=== PATIENT | female | born 1995 | race Caucasian/White ===

== ENCOUNTER 2019-12-20 11:31 | Emergency (ER) | payer OTHER ==
[2019-12-20] MEDS ORDERED: SODIUM CHLORIDE 0.9% 1,000 ML IV STA (12:00)
[2019-12-20 12:27] LABS: BASOPHILS % (AUTO) 0.3 %; EOSINOPHILS % (AUTO) 0.2 %; HGB - HEMOGLOBIN 13.7 g/dL (12.0-16.0); LYMPHOCYTES # (AUTO) 0.9 10^3/uL (1.5-3.5); LYMPHOCYTES % (AUTO) 14.5 %; MEAN CORPUSCULAR HEMOGLOBIN 30.9 pg (27.0-31.0); MEAN CORPUSCULAR HGB CONC 33.7 g/dL (32.0-36.0); MEAN CORPUSCULAR VOLUME 91.7 fL (81.0-99.0); MEAN PLATELET VOLUME 10.1 fL (7.9-10.8); MONOCYTES # (AUTO) 0.3 10^3/uL (0.0-1.0); MONOCYTES % (AUTO) 4.2 %; NEUTROPHILS % (AUTO) 80.5 %; PLT - PLATELET COUNT 199 10^3/uL (130-450); RED BLOOD COUNT 4.44 10^6/uL (4.20-5.40); RED CELL DISTRIBUTION WIDTH 11.9 % (12.0-15.0); WHITE BLOOD COUNT 6.2 x10^3/uL (4.8-10.8)
[2019-12-20 12:40] LABS: ALBUMIN 5.3 g/dL (3.2-5.5); ALBUMIN/GLOBULIN RATIO 1.4 (1.0-2.2); BILIRUBIN,TOTAL 1.2 mg/dL (0.2-1.0); CALCIUM 9.7 mg/dL (8.5-10.3); CREATININE 0.8 mg/dL (0.4-1.0); TOTAL PROTEIN 9.1 g/dL (6.7-8.2)
[2019-12-20 13:48] LABS: BILIRUBIN,URINE NEGATIVE (NEGATIVE); GLUCOSE, URINE (UA) NEGATIVE (NEGATIVE); KETONES,URINE (UA) >=80 mg/dL (NEGATIVE); LEUKOCYTE ESTERASE, URINE NEGATIVE (NEGATIVE); NITRITE,URINE NEGATIVE (NEGATIVE); OCCULT BLOOD,URINE NEGATIVE (NEGATIVE); PH,URINE 5.5 PH (5.0-7.5); PROTEIN,URINE NEGATIVE (NEGATIVE); UROBILINOGEN,URINE 0.2 (NORMAL) E.U./dL (NORMAL)
[2019-12-20 13:50] LABS: CLARITY,URINE CLEAR (CLEAR)
[2019-12-20 13:51] LABS: HCG UR QUAL POSITIVE
--- NOTE | 2019-12-20 14:08 | ED Physician Documentation ---
PD HPI NVD - Stated complaint Stated Complaint: N/V - Chief complaint Chief Complaint: Abd Pain - History obtained from History obtained from: Patient, Family - History of Present Illness Timing - onset: How many days ago (2) Timing - duration: Days (2) Timing - details: Gradual onset, Still present Associated symptoms: Near syncope / syncope Contributing factors: Travel Improved by: Laying still Worsened by: Moving Similar symptoms before: Diagnosis (morning sickness) Recently seen: Clinic - Additonal information Additional information: 24 y/o female 9 wks has developed vomiting and feels light headed. She has not tried her pyridoxine as yet as she was afraid she would vomit the medication. Review of Systems Constitutional: denies: Fever Eyes: denies: Decreased vision Ears: denies: Ear pain Nose: denies: Congestion Throat: denies: Sore throat Cardiac: denies: Chest pain / pressure Respiratory: denies: Dyspnea, Cough GI: reports: Nausea, Vomiting. denies: Abdominal Pain : denies: Dysuria, Frequency Skin: denies: Rash Musculoskeletal: denies: Neck pain PD PAST MEDICAL HISTORY - Past Medical History Past Medical History: No - Past Surgical History Past Surgical History: No - Allergies Allergies/Adverse Reactions: Allergies Allergy/AdvReac Type Severity Reaction Status Date / Time No Known Drug Allergies Allergy Verified 12/20/19 11:37 - Social History Does the pt smoke?: No Smoking Status: Never smoker Does the pt drink ETOH?: No Does the pt have substance abuse?: No PD ED PE NORMAL - Vitals Vital signs reviewed: Yes (hypertensive) - General General: Alert and oriented X 3, No acute distress, Well developed/nourished - HEENT HEENT: Atraumatic, PERRL, EOMI - Neck Neck: Supple, no meningeal sign, No bony TTP - Cardiac Cardiac: RRR, No murmur - Respiratory Respiratory: No respiratory distress, Clear bilaterally - Abdomen Abdomen: Normal bowel sounds, Soft, Non tender, Non distended, No organomegaly - Back Back: No CVA TTP, No spinal TTP - Derm Derm: Normal color, Warm and dry, No rash - Extremities Extremities: No deformity, No edema - Neuro Neuro: Alert and oriented X 3, vacation planner 2-12 intact, No motor deficit, No sensory deficit, Normal speech Eye Opening: Spontaneous Motor: Obeys Commands Verbal: Oriented GCS Score: 15 - Psych Psych: Normal mood, Normal affect Results - Vitals Vitals: Vital Signs - 24 hr 12/20/19 12/20/19 12/20/19 11:34 13:37 14:21 Temperature 36.3 C L 37.4 C Heart Rate 85 64 80 Respiratory 18 18 18 Rate Blood Pressure 133/64 H 99/60 99/59 L O2 Saturation 100 100 100 Oxygen O2 Source Room air - Labs Labs: Laboratory Tests 12/20/19 12/20/19 12/20/19 12:20 12:20 13:40 WBC 6.2 RBC 4.44 Hgb 13.7 Hct 40.7 MCV 91.7 MCH 30.9 MCHC 33.7 RDW 11.9 L Plt Count 199 MPV 10.1 Neut # (Auto) 5.0 Lymph # (Auto) 0.9 L [place] # (Auto) 0.3 Eos # (Auto) 0.0 Baso # (Auto) 0.0 Absolute Nucleated RBC 0.00 Nucleated RBC % 0.0 Sodium 134 L Potassium 3.4 L Chloride 99 L Carbon Dioxide 19 L Anion Gap 16.0 H BUN 20 Creatinine 0.8 Estimated GFR (MDRD) 90 Glucose 82 Calcium 9.7 Total Bilirubin 1.2 H AST 19 ALT 14 Alkaline Phosphatase 36 L Total Protein 9.1 H Albumin 5.3 Globulin 3.8 Albumin/Globulin Ratio 1.4 Lipase 70 H Urine Color YELLOW Urine Clarity CLEAR Urine pH 5.5 Ur Specific [place] >=1.030 H Urine Protein NEGATIVE Urine Glucose (UA) NEGATIVE Urine Ketones >=80 H Urine Occult Blood NEGATIVE Urine Nitrite NEGATIVE Urine Bilirubin NEGATIVE Urine Urobilinogen 0.2 (NORMAL) Ur Leukocyte Esterase NEGATIVE Ur Microscopic Review NOT INDICATED Urine Culture Comments NOT INDICATED Urine HCG, Qual POSITIVE Procedures - Bedside sono Bedside sono by EMP: With use of bedside ultrasound the pelvis is imaged and there is a viable appearing fetus in a gestational sac measuring 8 weeks 4 days. The cardiac activity is clearly visible I was not able to get the Doppler probe to count the rate. - IVC sono (time) 1145 Bedside IVC sono: IVC measures (cm) (1.12), Dehydration (est 1+ liter deficit) PD MEDICAL DECISION MAKING - ED course Complexity details: reviewed results, re-evaluated patient, considered differential, d/w patient, d/w family ED course: 24-year-old female with excessive vomiting is dehydrated she is 9 weeks . She appears to have a viable fetus she does not have evidence of a urinary tract infection and she is administered saline. She is administered her own vitamin B6. She feels much improved after saline infusion. Departure - Departure Disposition: 01 Home, Self Care Clinical Impression: Morning sickness, Dehydration Condition: Stable Instructions: ED Dehydration, ED Preg Morning Sickness Follow-Up: PETE Mendiola [Provider Group] Discharge Date/Time: 12/20/19 14:21
[2019-12-20 14:24] VITALS: BP 99/59
== END 2019-12-20 14:21 | disposition home or self-care (01) ==
LOC: ED 11:31
DX: O21.1 Hyperemesis gravidarum with metabolic disturbance (principal); Z3A.09 9 weeks gestation of pregnancy
CPT/HCPCS: 80053; 81001; 81003; 81025; 83690; 85025; 87086; 96360; 99282

== ENCOUNTER 2020-06-30 08:00 | Outpatient (CLI) | payer OTHER | END 2020-06-30 23:59 | disposition home or self-care (01) | LOC: LAB.R 08:00 | PROVIDERS: ATTEND Obstetrics & Gynecology | DX: Z36.85 Encounter for antenatal screening for Streptococcus B (principal) | CPT/HCPCS: 87797 ==

== ENCOUNTER 2020-07-07 10:37 | Outpatient (CLI) | payer OTHER ==
[2020-07-07 10:53] VITALS: BP 110/76
--- NOTE | 2020-07-07 16:48 | Ultrasound Report ---
PROCEDURE: OB F/U or Repeat INDICATIONS: small for gestational age OUTSIDE/PRIOR DATING DATA: Last menstrual period (LMP): 10/19/2019. LMP-based estimated date of delivery (MAURO): 07/25/2020. First dating scan (date and location): 11/29/2019 at [facility]. Estimated date of delivery (MAURO) from first dating scan: 07/25/2020. TECHNIQUE: Real-time scanning was performed of the fetus, with image documentation and biometric measurements. COMPARISON: None available. Report from prior ultrasound dated 03/01/2020. FINDINGS: General: A single living intrauterine gestation is present. Presentation: Vertex Placenta: Placental position is fundal, without previa. Amniotic fluid index: 10 cm, 18th percentile for gestational age. Largest pocket measures 4 cm. heart rate: 139 beats per minute. Maternal cervical canal: The cervix appears closed. biometrics: Biparietal diameter: 9.1 cm, 37 weeks 1 day Head circumference: 32.2 cm, 36 weeks 3 days Abdominal circumference: 32.8 cm, 36 weeks 5 days Femur length: 7.1 cm, 36 weeks 2 days Estimated gestational age from initial scan: 37 weeks 3 days Composite gestational age from present scan: 36 weeks 5 days Estimated weight and percentile: 2991 g corresponding to the 37th percentile Measurement variability in biometric dating: +/- 10 days from 12-20 weeks gestation, +/- 2 weeks from 20-30 weeks gestation, +/- 3 weeks at 30 weeks gestation or more. IMPRESSION: 1. Single living intrauterine demonstrated in vertex position. 2. Estimated weight at the 37th percentile. Reviewed by: Shlomo Whiteside MD on 07/07/2020 4:47 PM PST Approved by: Shlomo Whiteside MD on 07/07/2020 4:47 PM PST Station ID: [id number]
--- NOTE | 2020-07-10 15:24 | PROCEDURE REPORT ---
- HPI Diagnosis/Indication for NST: Decreased movement Current EDU 07/25/20 Gestation 37 Weeks and 3 Days 2 Para 0 Vital Signs Temperature 36.3 C L 07/07/20 10:49 Heart Rate 97 07/07/20 10:49 Respiratory Rate 16 07/07/20 10:49 Blood Pressure 110/76 07/07/20 10:49 O2 Saturation 100 07/07/20 10:49 Temperature 36.3 C L 07/07/20 10:49 Heart Rate 97 07/07/20 10:49 Respiratory Rate 16 07/07/20 10:49 Blood Pressure 110/76 07/07/20 10:49 O2 Saturation 100 07/07/20 10:49 - NST Procedure NST Procedure Start Date 07/07/20 Start Time 10:45 Stop Time 11:33 Vibroacoustic Stimulation Used No Patient States Movement Yes: decreased - Results and Plan Findings/Impression: DOS, REACTIVE NST Plan: REPORT DECREASED FM OR SROM
== END 2020-07-07 15:00 | disposition home or self-care (01) ==
LOC: WFO 10:37 → FBP 10:39 → WFO 15:00
PROVIDERS: ATTEND Obstetrics & Gynecology
DX: O36.8130 Decreased fetal movements, third trimester, not applicable or unspecified (principal); O36.5930 Maternal care for other known or suspected poor fetal growth, third trimester, not applicable or unspecified; Z3A.37 37 weeks gestation of pregnancy
CPT/HCPCS: 59025; 81599; 82951; 82952; 83036

== ENCOUNTER 2020-07-21 20:03 | Inpatient (IN) | payer OTHER ==
[2020-07-21] MEDS ORDERED: CARBOPROST TROMETHAMINE 250 MCG/ML AMP IM PRN (20:33)
[2020-07-21] MEDS ORDERED: LIDOCAINE-MPF 1% 30 ML VIAL ID PRN (20:33)
[2020-07-21] MEDS ORDERED: SODIUM CHLORIDE FLUSH 0.9% 10 ML SYRINGE IVP PRN (20:33)
[2020-07-21] MEDS ORDERED: miSOPROStoL 200 MCG TABLET BC PRN (20:33)
[2020-07-21] MEDS ORDERED: TRANEXAMIC ACID IN NACL 1,000 MG/100 ML BAG IV PRN (20:33)
[2020-07-21] MEDS ORDERED: OXYTOCIN/SODIUM CHLORIDE 500 ML IV PRN (20:33)
[2020-07-21] MEDS ORDERED: METHYLERGONOVINE 0.2 MG/ML VIAL IM PRN (20:33)
[2020-07-21] MEDS ORDERED: OXYTOCIN 10 UNIT/ML VIAL IM PRN (20:33)
[2020-07-21] MEDS ORDERED: LACTATED RINGERS 500 ML IV SCH (20:36)
[2020-07-21] MEDS: SODIUM CHLORIDE FLUSH 0.9% 10 ML SYRINGE IVP SCH ×2 (21:18→23:06)
[2020-07-21 21:24] LABS: BASOPHILS % (AUTO) 0.2 %; EOSINOPHILS % (AUTO) 0.1 %; HGB - HEMOGLOBIN 8.1 g/dL (12.0-16.0); LYMPHOCYTES # (AUTO) 2.9 10^3/uL (1.5-3.5); LYMPHOCYTES % (AUTO) 23.4 %; MEAN CORPUSCULAR HEMOGLOBIN 21.2 pg (27.0-31.0); MEAN PLATELET VOLUME 10.7 fL (7.9-10.8); MONOCYTES # (AUTO) 0.8 10^3/uL (0.0-1.0); MONOCYTES % (AUTO) 6.2 %; NEUTROPHILS # (AUTO) 8.6 10^3/uL (1.5-6.6); NEUTROPHILS % (AUTO) 69.5 %; PLT - PLATELET COUNT 265 10^3/uL (130-450); RED BLOOD COUNT 3.82 10^6/uL (4.20-5.40); RED CELL DISTRIBUTION WIDTH 18.5 % (12.0-15.0); WHITE BLOOD COUNT 12.3 x10^3/uL (4.8-10.8)
[2020-07-21] MEDS ORDERED: fentaNYL 100 MCG/2 ML VIAL IVP PRN (22:58)
[2020-07-21] MEDS ORDERED: ONDANSETRON 4 MG/2 ML VIAL IVP PRN (23:33)
[2020-07-21] MEDS ORDERED: ROPIVACAINE 0.2% 200 MG/100 ML BAG EP ONE (23:50)
[2020-07-22] MEDS ORDERED: diphenhydrAMINE INJ 50 MG/ML VIAL IVP PRN (00:12)
[2020-07-22] MEDS ORDERED: ROPIVACAINE 0.2% 200 MG/100 ML BAG EP PRN (00:12)
[2020-07-22] MEDS ORDERED: NALOXONE 0.4 MG/ML VIAL IVP PRN (00:12)
[2020-07-22] MEDS ORDERED: NALBUPHINE 10 MG/ML AMP IVP PRN (00:12)
[2020-07-22] MEDS ORDERED: ONDANSETRON 4 MG/2 ML VIAL IVP PRN (00:12)
[2020-07-22] MEDS ORDERED: ePHEDrine 50 MG/ML VIAL IVP PRN (00:12)
[2020-07-22] MEDS ORDERED: METOCLOPRAMIDE 10 MG/2 ML VIAL IVP PRN (00:12)
--- NOTE | 2020-07-22 00:15 | ANESTHESIA ---
Pre-Anesthesia VS, & Labs - Diagnosis active labor - Procedure labor epidural Vital Signs: Temp Pulse Resp BP Pulse Ox 36.8 C 90 16 138/85 H 100 07/21/20 20:46 07/21/20 20:16 07/21/20 20:16 07/21/20 20:16 07/21/20 20:16 Height: 5 ft 3 in Weight (kg): 63.049 kg Body Mass Index: 24.6 BMI Classification: Healthy weight - NPO >8 hours - Is Patient ?: Yes - Lab Results Current Lab Results: Laboratory Tests 07/21/20 21:17: WBC 12.3 H, RBC 3.82 L, Hgb 8.1 L, Hct 27.9 L, MCV 73.0 L, MCH 21.2 L, MCHC 29.0 L, RDW 18.5 H, Plt Count 265, MPV 10.7, Neut # (Auto) 8.6 H, Lymph # (Auto) 2.9, [place] # (Auto) 0.8, Eos # (Auto) 0.0, Baso # (Auto) 0.0, Absolute Nucleated RBC 0.05, Nucleated RBC % 0.4 07/21/20 21:17: Blood Type A POSITIVE, Antibody Screen NEGATIVE Fish Bones: 07/21/20 21:17 Home Medications and Allergies Active Medications Carboprost Tromethamine (Carboprost Tromethamine 250 Mcg/Ml Amp) 250 mcg IM Q15M PRN PRN Reason: Step 4: Hemorrhage protocol Stop: 07/26/20 20:33 Diphenhydramine HCl (Diphenhydramine Inj 50 Mg/Ml Vial) 12.5 - 25 mg IVP Q6HR PRN PRN Reason: ITCHING Ephedrine Sulfate (Ephedrine 50 Mg/Ml Vial) 5 mg IVP Q5M PRN PRN Reason: For SBP<100;give until SBP>100 Fentanyl (Fentanyl 100 Mcg/2 Ml Vial) 100 mcg IVP Q1HR PRN PRN Reason: PAIN Last Admin: 07/21/20 23:06 Dose: 100 mcg Documented by: Lactated Ringer's (Lr) 500 mls @ 999 mls/hr IV .Q31M CECELIA Last Admin: 07/21/20 21:17 Dose: 999 mls/hr Documented by: Oxytocin/Sodium Chloride (Pitocin/Sodium Chloride) 500 mls @ 999 mls/hr IV PRN PRN; Protocol PRN Reason: POST- HEMORR PREVENTION Stop: 07/26/20 20:33 Tranexamic Acid (Tranexamic 1,000 Mg/100ml-Nacl) 1,000 mg in 100 mls @ 600 mls/hr IV .ONCE PRN PRN Reason: EBL >1200mL and within 3hr Stop: 07/26/20 20:33 Lidocaine HCl (Lidocaine-Mpf 1% 30 Ml Vial) 30 ml ID .ONCE PRN PRN Reason: PERINEAL REPAIR Stop: 07/26/20 20:33 Methylergonovine Maleate (Methylergonovine 0.2 Mg/Ml Vial) 0.2 mg IM .ONCE PRN PRN Reason: Step 2: Hemorrhage protocol Stop: 07/26/20 20:33 Metoclopramide HCl (Metoclopramide 10 Mg/2 Ml Vial) 10 mg IVP Q6HR PRN PRN Reason: Nausea / Vomiting Misoprostol (Misoprostol 200 Mcg Tablet) 800 mcg BC .ONCE PRN PRN Reason: Step 3: Hemorrhage protocol Stop: 07/26/20 20:33 Naloxone HCl (Naloxone 0.4 Mg/Ml Vial) 0.1 mg IVP Q2M PRN PRN Reason: RR<8 Ondansetron HCl (Ondansetron 4 Mg/2 Ml Vial) 4 mg IVP Q4HR PRN PRN Reason: Nausea / Vomiting Last Admin: 07/21/20 23:35 Dose: 4 mg Documented by: Ondansetron HCl (Ondansetron 4 Mg/2 Ml Vial) 4 mg IVP Q6HR PRN PRN Reason: Nausea / Vomiting Oxytocin (Oxytocin 10 Unit/Ml Vial) 10 unit IM .ONCE PRN PRN Reason: Step one: If no IV access Stop: 07/26/20 20:33 Sodium Chloride (Sodium Chloride Flush 0.9% 10 Ml Syringe) 10 ml IVP PRN PRN PRN Reason: NEEDED PER PROVIDER ORDERS Last Admin: 07/21/20 21:18 Dose: 10 ml Documented by: Sodium Chloride (Sodium Chloride Flush 0.9% 10 Ml Syringe) 10 ml IVP 0100,0900,1700 CECELIA Last Admin: 07/21/20 23:06 Dose: 10 ml Documented by: Allergies/Adverse Reactions: Allergies Allergy/AdvReac Type Severity Reaction Status Date / Time No Known Drug Allergies Allergy Verified 12/20/19 11:37 Anes History & Medical History - Anesthetic History Anesthesia Complications: reports: No previous complications - Medical History Smoking Status: Never smoker Exam General: Alert Dental: WNL Mallampati classification: II Respiratory: Lungs clear Cardiovascular: Regular rate Plan Anesthesia Type: Epidural Consent for Procedure(s) Verified and Reviewed: Yes Code Status: Attempt Resuscitation ASA classification: 2-Mild systemic disease Is this case an emergency?: No
--- NOTE | 2020-07-22 01:14 | HISTORY & PHYSICAL EXAMINATION ---
Admit History - Smoking Status: Never smoker - Other Maternal History Other Maternal History: CC: labor HPI: contractions have increased today. No VB, no LOF. ROS: no cough or fever PMH: anemia PSH: wisdom teeth Allergies: NKDA Meds: PNV SH: no t/e/d OB: Dating: LMP c/w 5w US Labs: A+, RI, . Neg STI, pap unsatisfactory, 1h 141, 3h normal, QS normal, GBS neg Vax: s/p Tdap and flu vax Genetic: normal QS Anatomy: normal, post placenta, normal fluid, 84%ile O: AVSS Alert, grimacing, moaning with contractions SVE 4cm on admit Category 1 NST A/P: 25yo P0 at 39w4d with spontaneous labor at term. --Labor: spontaneous with good SVE change. 4cm on admit and ant lip now. Anticipate . --Anemia Hct 27: type and cross done for 2U, hemorrhage meds in room --Fetus: reassuring status. Category 1, vertex, normal anatomy, normal QS, EFW 37%ile on 07/07 --PP: needs re-pap. Rh+, RI, , s/p Tdap and flu Meds/Allgy - Allergies Allergies/Adverse Reactions: Allergies Allergy/AdvReac Type Severity Reaction Status Date / Time No Known Drug Allergies Allergy Verified 12/20/19 11:37 Physical - Abdominal Exam Vital Signs: Temp Pulse Resp BP Pulse Ox 98.2 F 90 16 138/85 H 100 07/21/20 20:46 07/21/20 20:16 07/21/20 20:16 07/21/20 20:16 07/21/20 20:16
[2020-07-22] MEDS ORDERED: ONDANSETRON ODT 4 MG TABLET TL PRN (03:24)
[2020-07-22] MEDS ORDERED: HYDROCORTISONE 1% CREAM 28 GM TUBE PR PRN (03:24)
[2020-07-22] MEDS ORDERED: WITCH HAZEL/GLYCERIN 1 PAD TOP PRN (03:24)
--- NOTE | 2020-07-22 03:28 | DELIVERY NOTE ---
Delivery Note - Labor Labor: positive: Spontaneous - Delivery Method Delivery Method: positive: Spontaneous vaginal delivery - Presentation Presentation: positive: Vertex - Nuchal Cord Nuchal Cord: positive: Present, Reduced (loose) - Amniotic Fluid Description Amniotic Fluid Description: positive: Clear - Episiotomy Type Episiotomy Type: positive: None - Laceration Laceration: positive: 2nd degree - Suture Suture Type: positive: Vicryl Suture Size: positive: 2-0 (Normal anatomy restored) - Delivery Outcome Delivery Outcome: positive: Livebirth - : positive: Placed in direct skin contact with mother, Bulb syringe, Stimulated, Warmed, Bryant used sex: positive: Female : Apgars 9/9 - Cord Cord: positive: 3 vessels - Placenta Placenta: positive: Intact, Spontaneous - Estimated Blood Loss Estimated Blood Loss (in cc): 200 - Post Delivery Events Post Delivery Events: positive: No post delivery events - Delivery Comments (Free Text/Narrative) Delivery Comments (Free Text/Narrative): Uncomplicated spontaneous vaginal delivery at term. Anticipate routine care. Hct 27, doing repeat and iron studies, anticipate doing IV iron transfusion. EBL 200cc.
[2020-07-22] MEDS: IBUPROFEN 600 MG TABLET PO SCH ×5 (03:38→23:21)
[2020-07-22] MEDS: ACETAMINOPHEN 500 MG TABLET PO SCH ×3 (03:38→23:45)
[2020-07-22] MEDS: DOCUSATE SODIUM 100 MG CAPSULE PO SCH ×2 (09:58→21:06)
[2020-07-22 11:01] LABS: BASOPHILS % (AUTO) 0.1 %; LYMPHOCYTES # (AUTO) 1.6 10^3/uL (1.5-3.5); LYMPHOCYTES % (AUTO) 10.7 %; MEAN CORPUSCULAR HEMOGLOBIN 21.5 pg (27.0-31.0); MEAN CORPUSCULAR HGB CONC 28.9 g/dL (32.0-36.0); MEAN CORPUSCULAR VOLUME 74.5 fL (81.0-99.0); MEAN PLATELET VOLUME 10.5 fL (7.9-10.8); MONOCYTES # (AUTO) 0.7 10^3/uL (0.0-1.0); MONOCYTES % (AUTO) 4.6 %; NEUTROPHILS # (AUTO) 12.3 10^3/uL (1.5-6.6); NEUTROPHILS % (AUTO) 84.1 %; PLT - PLATELET COUNT 215 10^3/uL (130-450); RED BLOOD COUNT 3.25 10^6/uL (4.20-5.40); RED CELL DISTRIBUTION WIDTH 18.4 % (12.0-15.0); WHITE BLOOD COUNT 14.6 x10^3/uL (4.8-10.8)
[2020-07-22 11:34] LABS: % IRON SATURATION 2 % (20-50); IRON 11 ug/dL (28-170); PLATELET ESTIMATE, MANUAL NORMAL (130-450,000) (NORMAL); PLATELET MORPHOLOGY NORMAL APPEARANCE (NORMAL); TOTAL IRON BINDING CAPACITY 567 ug/dL (250-450); TRANSFERRIN 405 mg/dL (192-382)
[2020-07-22] MEDS ORDERED: FERRIC GLUCONATE 125 MG in SODIUM CHLORIDE 0.9% 100ML 100 ML IV ONE (12:00)
[2020-07-22] MEDS: SODIUM CHLORIDE FLUSH 0.9% 10 ML SYRINGE IVP SCH ×2 (13:00→23:45)
--- NOTE | 2020-07-22 14:06 | PROVIDER PROGRESS NOTE ---
Subjective - Subjective Subjective: Feeling well, no probs with pain, eat, ambulate, urinate, bleeding, STEVENS, SOB, CP, dizziness. Bottle feeding and breasts are OK. O: AVSS Alert, cuddling baby, smiling, NAD Abd soft, nt/nd Fundus firm, NT, 2cm below umbilicus Hb 7, Fe low A/P: 25yo P1 PPD # 0.5 s/p at term complicated by chronic iron deficiency anemia + new acute blood loss anemia. Iv Fe given and will plan 3 more doses outpatient. Tolerating well. Otherwise routine care. Objective - Vital Signs/Intake & Output Vital Signs: Vital Signs x48h Temp Pulse Resp BP Pulse Ox 07/22/20 09:50 98.2 F 73 18 129/79 98 Intake & Output: Intake & Output 07/19/20 07/20/20 07/21/20 07/22/20 23:59 23:59 23:59 23:59 Intake Total 1000 Output Total 75 Balance 925 - Lab Results Fish Bones: 07/22/20 10:57 Other Labs: Lab Results x24hrs 07/22/20 07/22/20 07/21/20 Range/Units 10:57 10:57 21:17 WBC 14.6 H 12.3 H (4.8-10.8) x10^3/uL RBC 3.25 L 3.82 L (4.20-5.40) 10^6/uL Hgb 7.0 L* 8.1 L (12.0-16.0) g/dL Hct 24.2 L 27.9 L (37.0-47.0) % MCV 74.5 L 73.0 L (81.0-99.0) fL MCH 21.5 L 21.2 L (27.0-31.0) pg MCHC 28.9 L 29.0 L (32.0-36.0) g/dL RDW 18.4 H 18.5 H (12.0-15.0) % Plt Count 215 265 (130-450) 10^3/uL MPV 10.5 10.7 (7.9-10.8) fL Neut # (Auto) 12.3 H 8.6 H (1.5-6.6) 10^3/uL Lymph # (Auto) 1.6 2.9 (1.5-3.5) 10^3/uL [place] # (Auto) 0.7 0.8 (0.0-1.0) 10^3/uL Eos # (Auto) 0.0 0.0 (0.0-0.7) 10^3/uL Baso # (Auto) 0.0 0.0 (0.0-0.1) 10^3/uL Absolute Nucleated RBC 0.00 0.05 x10^3/uL Nucleated RBC % 0.0 0.4 /100WBC WBC Morphology NORMAL APPEARANCE (NORMAL) Platelet Estimate NORMAL (130-450,000) (NORMAL) Platelet Morphology NORMAL APPEARANCE (NORMAL) RBC Morph Micro Appear 1+ HYPOCHROMASIA (NORMAL) Iron 11 L (28-170) ug/dL TIBC 567 H (250-450) ug/dL % Saturation 2 L (20-50) % Transferrin 405 H (192-382) mg/dL Blood Type Blood Type Recheck Antibody Screen Crossmatch IS Only 07/21/20 07/21/20 Range/Units 21:17 01:10 WBC (4.8-10.8) x10^3/uL RBC (4.20-5.40) 10^6/uL Hgb (12.0-16.0) g/dL Hct (37.0-47.0) % MCV (81.0-99.0) fL MCH (27.0-31.0) pg MCHC (32.0-36.0) g/dL RDW (12.0-15.0) % Plt Count (130-450) 10^3/uL MPV (7.9-10.8) fL Neut # (Auto) (1.5-6.6) 10^3/uL Lymph # (Auto) (1.5-3.5) 10^3/uL [place] # (Auto) (0.0-1.0) 10^3/uL Eos # (Auto) (0.0-0.7) 10^3/uL Baso # (Auto) (0.0-0.1) 10^3/uL Absolute Nucleated RBC x10^3/uL Nucleated RBC % /100WBC WBC Morphology (NORMAL) Platelet Estimate (NORMAL) Platelet Morphology (NORMAL) RBC Morph Micro Appear (NORMAL) Iron (28-170) ug/dL TIBC (250-450) ug/dL % Saturation (20-50) % Transferrin (192-382) mg/dL Blood Type A POSITIVE Blood Type Recheck A POSITIVE Antibody Screen NEGATIVE Crossmatch IS Only See Detail
[2020-07-23] MEDS: IBUPROFEN 600 MG TABLET PO SCH ×2 (05:15→12:37)
[2020-07-23] MEDS: DOCUSATE SODIUM 100 MG CAPSULE PO SCH (08:06)
[2020-07-23 08:28] VITALS: BP 121/88
--- NOTE | 2020-07-23 09:28 | Discharge Plan ---
Discharge Plan Problem Reviewed?: Yes Disposition: Home, Self Care Condition: Good Prescriptions: Docusate Sodium 100Mg Capsule [Colace 100Mg Capsule] 100 mg PO BID PRN #30 cap PRN Reason: to soften stool Iron Polysaccharide Complex [Hematex] 1 tab PO DAILY #90 Ibuprofen [Motrin] 600 mg PO Q6H PRN #30 tab PRN Reason: Pain 168/Iron/Folic/Omega3 [One-A-Day -1 Softgel] 1 each PO DAILY #90 cap Diet: Regular Shower Restrictions: No Driving Restrictions: No No Smoking: If you smoke, Please STOP! Call for help. Follow-up with: Jonathan Silva MD [Provider Admit Priv/Credential] - (3w)
--- NOTE | 2020-07-23 10:19 | DISCHARGE SUMMARY ---
Physician: Piedad Mclain MD DATE OF ADMISSION: 07/22/2020 DATE OF DISCHARGE: 07/23/2020 ADMISSION DIAGNOSES: 1. Intrauterine at 39 weeks 4 days. 2. Spontaneous labor. 3. Chronic iron deficiency anemia. DISCHARGE DIAGNOSES: 1. Status post spontaneous vaginal delivery. 2. Both chronic iron deficiency anemia and acute blood loss anemia. OPERATIONS AND PROCEDURES: 07/22/2020, liveborn vaginal delivery of a female. EBL was 200 mL There was a second-degree perineal laceration that was repaired. HOSPITAL COURSE: The patient was admitted in spontaneous labor. She received an epidural for pain c ontrol. Her labor and delivery were uncomplicated with an estimated blood loss of 200 mL The patient 's hematocrit was 27 on admission, Her hemoglobin post-delivery was 7.0. She was tolerating her anem ia well. She did not have any headaches, chest pain, shortness of breath, dizziness, or faintness. Her bleeding was normal following delivery. She was given an IV iron transfusion. She was set up fo r IV iron transfusions at the [facility] as an outpatient weekly for three more infusions. She has b een taking daily oral IV replacement at home and this has been insufficient. Otherwise, her postpart um course was unremarkable. By day #2, she was requesting discharge home. She was eating , ambulating, urinating, and without difficulties. No problems with pain or mood. PHYSICAL EXAM: She was afebrile with normal vital signs. GENERAL: Alert and smiling, in no apparent distress. ABDOMEN: Soft, nontender, nondistended. Fundus firm, nontender, and 2 cm below the umbilicus. DISCHARGE MEDICATIONS: Ibuprofen p.r.n., Colace p.r.n. vitamin daily, iron daily. FOLLOWUP: In 3 weeks with [facility]. DISPOSITION: Home. CONDITION: Good. TD: 07/23/2020 09:35
--- NOTE | 2020-07-23 13:25 | Labor Flowsheet ---
Labor Flowsheet Datetime Report Generated by CPN: 07/23/2020 13:25 Datetime: 07/23/2020 07:53 VITAL SIGNS NBP Sys/Ebony/Mean (mmHg): 121 : 88 : 95 Pulse: 81 LaborFlag: Labor Datetime: 07/22/2020 23:25 SpO2 (%): 95 Datetime: 07/22/2020 04:07 Membranes Ruptured Date/Time: 07/22/2020 00:50 Amniotic Fluid Amount: Small Datetime: 07/22/2020 03:00 Stage 2 Comments: placenta delivered spontaneously. Intact and routine discard Datetime: 07/22/2020 02:45 UTERINE ACTIVITY Monitor Mode: External Frequency (min): 2-2.5 Quality: Strong Duration (sec): 70-140 Pattern: Normal: <= 5 Contractions in 10 Minutes Resting Tone (Palpate): Relaxed ASSESSMENT A Monitor Mode: Telemetry FHR Baseline Rate : 140 Variability: Moderate 6-25 bpm Accelerations: 15X15 Decelerations: Variable Category: Category II Datetime: 07/22/2020 01:51 Temperature (C): 36.7 Datetime: 07/22/2020 01:19 STAGE 2 Pushing: Coached on Pushing; Urge to Push Pushing Position: Pushing with Contractions Pushing Progress: Descent with Pushing Datetime: 07/22/2020 01:17 VAGINAL EXAM Dilatation (cm): 10.0 Exam by: Chemo Vaginal Exam Comments: reduced cervix Datetime: 07/22/2020 01:06 Monitor Interventions for FHR: Ultrasound Adjusted Datetime: 07/22/2020 01:05 Vaginal Bleeding: Normal Show Cervix, Consistency: Soft Cervix, Position: Anterior Datetime: 07/22/2020 01:00 MATERNAL ASSESSMENT Maternal Comments: arm clenched Datetime: 07/22/2020 00:50 Membrane Status: Ruptured Membranes Rupture Method: Artificial Amniotic Fluid Color: Clear Datetime: 07/22/2020 00:29 COMMUNICATION Communication: Call/Page Placed to Provider Provider Notified (Name): Chemo Communication Comments: Come to bedside to attend delivery. Pt is states she is feeling pressure an d is pushing, RN is performing SVE now. Datetime: 07/22/2020 00:28 Effacement (%): 100 Station: 0 Membrane Comments: bulgy bag Datetime: 07/21/2020 23:59 Epidural Procedure Other: Pump Started Datetime: 07/21/2020 23:56 PAIN Pain Scale: 7 Pain Presence: Intermittent Pain Type: Contraction Pain Location: Abdomen Pain Relief Measures: Epidural Given Pain Coping: Breathing Through Contractions Pain Assessment Comments: 7-8 Datetime: 07/21/2020 23:47 Epidural Procedure: Cath Placed Datetime: 07/21/2020 23:46 Epidural Positioning: Sitting Anesthesia Comments: lidocaine Datetime: 07/21/2020 23:40 PROCEDURE TIME OUT Procedure Verify: Correct Patient Identity; Correct Side and Site are Marked; Accurate Procedure Co nsent Form; Agreement on Procedure to be Done; Correct Patient Position ANESTHESIA Anesthesia Plans: Epidural Datetime: 07/21/2020 23:19 Comfort Measures: Breathing/Relaxation Datetime: 07/21/2020 23:00 Comments: FHR in 140s Datetime: 07/21/2020 22:52 Patient Position/Activity: Right Lateral Datetime: 07/21/2020 22:37 I/O Interventions: Up to BR Patient Care Comments: out of jacuzzi on toilet Datetime: 07/21/2020 21:00 PATIENT CARE IV/Blood Work: IV Started
== END 2020-07-23 12:30 | disposition home or self-care (01) | DRG 806 ==
LOC: WFO 20:03 → FBP 20:06 → WFO 20:33
PROVIDERS: ADMIT Obstetrics & Gynecology; ATTEND Obstetrics & Gynecology
PROC: 0KQM0ZZ Repair Perineum Muscle, Open Approach (ICD-10-PCS; principal; 2020-07-22)
PROC: 10E0XZZ Delivery of Products of Conception, External Approach (ICD-10-PCS; 2020-07-22)
DX: O99.02 Anemia complicating childbirth (principal); D62 Acute posthemorrhagic anemia; Z37.0 Single live birth; D50.9 Iron deficiency anemia, unspecified; O70.1 Second degree perineal laceration during delivery; O69.81X0 Labor and delivery complicated by cord around neck, without compression, not applicable or unspecified; Z3A.39 39 weeks gestation of pregnancy; Z20.822 Contact with and (suspected) exposure to COVID-19
CPT/HCPCS: 36415; 83540; 84466; 85025; 86850; 86900; 86901; 86920; 87635; 99213; A9270; J2916; J7120

== ENCOUNTER 2020-07-27 13:33 | Outpatient (CLI) | payer OTHER ==
[2020-07-27 14:30] VITALS: BP 109/70
[2020-07-27] MEDS ORDERED: FERRIC GLUCONATE 125 MG in SODIUM CHLORIDE 0.9% 100ML 100 ML IV ONE (14:30)
--- NOTE | 2020-07-27 16:06 | Labor Flowsheet ---
Labor Flowsheet Datetime Report Generated by CPN: 07/27/2020 16:06 Datetime: 07/23/2020 07:53 VITAL SIGNS NBP Sys/Ebony/Mean (mmHg): 121 : 88 : 95 Pulse: 81 LaborFlag: Labor Datetime: 07/22/2020 23:25 SpO2 (%): 95 Datetime: 07/22/2020 04:07 Membranes Ruptured Date/Time: 07/22/2020 00:50 Amniotic Fluid Amount: Small Datetime: 07/22/2020 03:00 Stage 2 Comments: placenta delivered spontaneously. Intact and routine discard Datetime: 07/22/2020 02:45 UTERINE ACTIVITY Monitor Mode: External Frequency (min): 2-2.5 Quality: Strong Duration (sec): 70-140 Pattern: Normal: <= 5 Contractions in 10 Minutes Resting Tone (Palpate): Relaxed ASSESSMENT A Monitor Mode: Telemetry FHR Baseline Rate : 140 Variability: Moderate 6-25 bpm Accelerations: 15X15 Decelerations: Variable Category: Category II Datetime: 07/22/2020 01:51 Temperature (C): 36.7 Datetime: 07/22/2020 01:19 STAGE 2 Pushing: Coached on Pushing; Urge to Push Pushing Position: Pushing with Contractions Pushing Progress: Descent with Pushing Datetime: 07/22/2020 01:17 VAGINAL EXAM Dilatation (cm): 10.0 Exam by: Chemo Vaginal Exam Comments: reduced cervix Datetime: 07/22/2020 01:06 Monitor Interventions for FHR: Ultrasound Adjusted Datetime: 07/22/2020 01:05 Vaginal Bleeding: Normal Show Cervix, Consistency: Soft Cervix, Position: Anterior Datetime: 07/22/2020 01:00 MATERNAL ASSESSMENT Maternal Comments: arm clenched Datetime: 07/22/2020 00:50 Membrane Status: Ruptured Membranes Rupture Method: Artificial Amniotic Fluid Color: Clear Datetime: 07/22/2020 00:29 COMMUNICATION Communication: Call/Page Placed to Provider Provider Notified (Name): Chemo Communication Comments: Come to bedside to attend delivery. Pt is states she is feeling pressure an d is pushing, RN is performing SVE now. Datetime: 07/22/2020 00:28 Effacement (%): 100 Station: 0 Membrane Comments: bulgy bag Datetime: 07/21/2020 23:59 Epidural Procedure Other: Pump Started Datetime: 07/21/2020 23:56 PAIN Pain Scale: 7 Pain Presence: Intermittent Pain Type: Contraction Pain Location: Abdomen Pain Relief Measures: Epidural Given Pain Coping: Breathing Through Contractions Pain Assessment Comments: 7-8 Datetime: 07/21/2020 23:47 Epidural Procedure: Cath Placed Datetime: 07/21/2020 23:46 Epidural Positioning: Sitting Anesthesia Comments: lidocaine Datetime: 07/21/2020 23:40 PROCEDURE TIME OUT Procedure Verify: Correct Patient Identity; Correct Side and Site are Marked; Accurate Procedure Co nsent Form; Agreement on Procedure to be Done; Correct Patient Position ANESTHESIA Anesthesia Plans: Epidural Datetime: 07/21/2020 23:19 Comfort Measures: Breathing/Relaxation Datetime: 07/21/2020 23:00 Comments: FHR in 140s Datetime: 07/21/2020 22:52 Patient Position/Activity: Right Lateral Datetime: 07/21/2020 22:37 I/O Interventions: Up to BR Patient Care Comments: out of jacuzzi on toilet Datetime: 07/21/2020 21:00 PATIENT CARE IV/Blood Work: IV Started
--- NOTE | 2020-07-27 17:01 | PROVIDER PROGRESS NOTE ---
Subjective - Subjective Subjective: Here for IV iron infusion. Dx = chronic iron deficiency anemia. Objective - Vital Signs/Intake & Output Vital Signs: Vital Signs x48h Temp Pulse Resp BP 07/27/20 14:05 98.8 F 86 16 109/70
== END 2020-07-27 15:45 | disposition home or self-care (01) ==
LOC: WFO 13:33 → FBP 13:36 → WFO 15:45
PROVIDERS: ATTEND Obstetrics & Gynecology
DX: O99.019 Anemia complicating pregnancy, unspecified trimester (principal); D50.9 Iron deficiency anemia, unspecified; Z3A.00 Weeks of gestation of pregnancy not specified
CPT/HCPCS: 96365; J2916

== ENCOUNTER 2020-07-30 14:51 | Outpatient (CLI) | payer OTHER ==
[2020-07-30 15:11] LABS: HGB - HEMOGLOBIN 10.3 g/dL (12.0-16.0); MEAN CORPUSCULAR HEMOGLOBIN 21.9 pg (27.0-31.0); MEAN CORPUSCULAR HGB CONC 28.1 g/dL (32.0-36.0); MEAN CORPUSCULAR VOLUME 77.9 fL (81.0-99.0); RED BLOOD COUNT 4.7 10^6/uL (4.20-5.40); RED CELL DISTRIBUTION WIDTH 23.1 % (12.0-15.0)
== END 2020-07-30 14:52 | disposition home or self-care (01) ==
LOC: LAB 14:51
PROVIDERS: ATTEND Obstetrics & Gynecology
DX: D50.8 Other iron deficiency anemias (principal)
CPT/HCPCS: 36415; 85027